=== PATIENT | female | born 1970 | race Caucasian/White ===

== ENCOUNTER 2019-10-25 20:56 | Emergency (ER) | payer MEDICAID, SELFPAY ==
[2019-10-25 21:28] VITALS: BP 182/116; PULSE 124; RESP 20; TEMP 36.3; O2SAT 95; BMI 32.3
== END 2019-10-25 22:30 | disposition left against medical advice (07) ==
LOC: ER 21:54
PROVIDERS: Emergency Provider Emergency Medicine
DX: Z53.21 Procedure and treatment not carried out due to patient leaving prior to being seen by health care provider (principal)
CPT/HCPCS: 99281

== ENCOUNTER 2020-02-14 14:59 | Emergency (ER) | payer MEDICAID, SELFPAY ==
[2020-02-14 15:03] VITALS: BP 197/116; PULSE 85; RESP 18; TEMP 36.8; O2SAT 98; BMI 36.6
--- NOTE | 2020-02-14 15:20 | ECG_ITS ---
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 Measurements Intervals [place] Rate: 89 P: 14 ID: [id number] QRS: 27 QRSD: 82 T: 71 QT: 353 QTc: 431 Interpretive Statements SINUS RHYTHM NONSPECIFIC T-WAVE ABNORMALITY Compared to ECG 03/06/2019 15:36:27 T-wave abnormality now present Sinus tachycardia no longer present Electronically Signed On 02-15-2020 8:37:53 CDT by Kimberly Biggs M.D. [id number] f
--- NOTE | 2020-02-14 15:20 | XRR_ITS ---
PROCEDURE INFORMATION: Exam: XR Right Knee Exam date and time: 02/14/2020 3:21 PM Age: 50 years old Clinical indication: Pain; Knee; Right; Prior surgery; Surgery date: 6+ months; Surgery type: Benign tumor removal TECHNIQUE: Imaging protocol: XR Right knee. Views: 3 views. COMPARISON: No relevant prior studies available. FINDINGS: Bones/joints: Negative for acute bony abnormality Soft tissues: There is a small suprapatellar bursa effusion seen. XR/XR knee RT 3V* [id number] IMPRESSION: 1. No acute bone abnormality. 2. Small suprapatellar bursa effusion
--- NOTE | 2020-02-14 15:28 | ED_ITS ---
HPI - General Adult General: Chief complaint: General Medical Stated complaint: RIGHT KNEE PAIN/HEART PALPS Time Seen by Provider: 02/14/20 15:20 Source: patient Mode of arrival: ambulatory Limitations: no limitations History of Present Illness: HPI narrative: 50-year-old female states she has chronic right knee pain has had multiple surgeries. She states that she has had increased pain over the last 1 to 2 weeks especially with walking. She denies any new injuries. States pain is improved with rest. States she is also had palpitations and has been very anxious. She states she supposed take medicine for this but has not over the last month due to not being able to afford it. She denies any chest pain at this time. Denies any vomiting. Associated symptoms: Reports palpitations; Deny dyspnea, headache(s), nausea, rash or vomiting Review of Systems Const: Denies: fever(s), chills, body aches or change in appetite Eyes: Denies: blurry vision or eye discomfort ENMT: Denies: throat pain or dental pain Card: Reports: palpitations Resp: Denies: dyspnea GI: Denies: abdominal pain, nausea, vomiting or diarrhea : Denies: dysuria Musc: Reports: extremity pain Skin/Breast: Denies: rash Neuro: Denies: headache(s) Psych: Denies: depression Ton/Lymph: Denies: easy bruising All/Imm: Denies: urticaria PFSH ED PFSH: Social History Smoking and tobacco status: never smoked Physical Exam Const: COMMON NORMALS: no acute distress, patient oriented x3 and healthy appearing HENMT: COMMON NORMALS: normocephalic and atraumatic HEAD & SCALP: normocephalic and atraumatic Eye: COMMON NORMALS: Equal, round and reactive pupils present and EOMs intact bilaterally PUPIL: Yes Equal, round and reactive pupils present Neck/C-Spine: COMMON NORMALS: full ROM and supple Chest: COMMONS NORMALS: normal inspection of the chest and normal palpation of entire chest wall Resp: COMMON NORMALS: normal respiratory effort, No retractions, No use of accessory muscles and clear to auscultation bilaterally AUSCULTATION: clear to auscultation bilaterally Cardio: COMMON NORMALS: regular rate, regular rhythm and No murmurs present (Cardio) RATE: regular rate RHYTHM: regular rhythm GI: COMMON NORMALS: Normal to inspection, nondistended, normoactive bowel sounds present, Soft to palpation, non-tender and no masses PALPATION: Yes Soft to palpation Extremity: COMMON NORMALS: normal to inspection and full ROM Neuro: COMMON NORMALS: patient oriented x3, moves all extremities and no focal motor deficits Psych: COMMON NORMALS: mental status grossly normal, Normal thought process present and cooperative MOOD & AFFECT: Yes anxious THOUGHT PROCESS: Normal thought process present Skin: COMMON NORMALS: no rashes or lesions noted and no wounds GENERAL SKIN EXAM: no rashes or lesions noted Course Vital Signs: Vital signs: Vital Signs Temperature 98.2 F 02/14/20 15:03 Pulse Rate 85 02/14/20 15:03 Respiratory Rate 18 02/14/20 15:03 Blood Pressure 197/116 02/14/20 15:03 Pulse Oximetry 98 02/14/20 15:03 MDM - General Adult MDM Narrative: Medical decision making narrative: Patient presents here with knee pain that is chronic in nature. Patient is also hypertensive. She is quite anxious as well. She feels much improved here after Ativan. We will start her on metoprolol. She is to follow-up with her primary care doctor soon as possible and return if worsening. Imaging Data^: xr knee: Radiologist's impression: [place] [address] XRay Report Signed Patient: Kanchan Leyva Unit #: [id number] : 1970 Age/Sex: 50 / F ADM Date: 02/14/20 Loc: ER Room/Bed: Attending Dr: Ordering Provider/Ordering MD: Lucy Goel MD Date of Service: 02/14/20 Procedure(s): XR knee RT 3V* [id number] Accession Number(s): [id number] Report Number: [id number] PROCEDURE INFORMATION: Exam: XR Right Knee Exam date and time: 02/14/2020 3:21 PM Age: 50 years old Clinical indication: Pain; Knee; Right; Prior surgery; Surgery date: 6+ months; Surgery type: Benign tumor removal TECHNIQUE: Imaging protocol: XR Right knee. Views: 3 views. COMPARISON: No relevant prior studies available. FINDINGS: Bones/joints: Negative for acute bony abnormality Soft tissues: There is a small suprapatellar bursa effusion seen. XR/XR knee RT 3V* [id number] IMPRESSION: 1. No acute bone abnormality. 2. Small suprapatellar bursa effusion EKG Data^: EKG 1: Attestation: I personally reviewed and interpreted this EKG as follows: EKG interpretation date: 02/14/20 EKG interpretation time: 15:14 Interpretation: Normal sinus rhythm heart rate [address] or T wave abnormalities QRS 82 QTC 400 Computer generated interpretation: Knee X-Ray 02/14/20 15:20 IMPRESSION: 1. No acute bone abnormality. 2. Small suprapatellar bursa effusion Discharge Plan Discharge Patient Disposition: Home Clinical Impression: Knee pain, right Qualifiers: Chronicity: chronic Qualified Code(s): M25.561 - Pain in right knee Hypertension Qualifiers: Hypertension type: essential hypertension Qualified Code(s): I10 - Essential (primary) hypertension Condition: Stable Prescriptions: New metoprolol tartrate 50 mg tablet 50 mg PO BID Qty: 30 RF: 0 Naprosyn 500 mg tablet 500 mg PO BID PRN (Reason: pain) Qty: 20 RF: 0 Discharge Orders: Discharge Order (Routine); Ordered 02/14/20 Ordered By: Lucy Goel Referrals: Juliano Rivers NP [Primary Care Provider] - 1-3 days Discharge Diet: Advance as tolerated Discharge Activity: Resume usual activity Patient Instructions: Knee Pain (ED), Hypertension (ED) Coding Level of Care Code ED Hotel Administrative Assistant for Chg Fwd Exam Comprehensive
[2020-02-14] MEDS: HYDROcodone-acetaminophen 5-325 mg Tablet 1 TAB PO (15:35)
[2020-02-14] MEDS: LORazepam 1 mg Tablet PO (15:35)
[2020-02-14] MEDS: metoprolol tartrate 25 mg Tablet PO (16:20)
[2020-02-14 16:22] VITALS: PULSE 86; RESP 14; O2SAT 93
== END 2020-02-14 16:23 | disposition home or self-care (01) ==
PROVIDERS: Emergency Provider Emergency Medicine; PCP Nurse Practitioner Family
DX: M25.561 Pain in right knee (principal); I10 Essential (primary) hypertension
CPT/HCPCS: 12345; 73562; 93005; 99281; 99283

== ENCOUNTER 2020-12-14 15:52 | Outpatient (CLI) | payer BC, MEDICAID, SELFPAY ==
--- NOTE | 2020-12-14 15:57 | XR_ITS ---
WS: [id number] KNEE RIGHT TECHNIQUE: 2 views of the right knee CLINICAL INFORMATION: KNEE PAIN, BILATERAL COMPARISON: February 14, 2020 FINDINGS: Moderate to advanced narrowing medial joint compartments similar in appearance to February 14, 2020. Mi ld hypertrophic spurring along the joint line. Moderate degenerative narrowing of patellofemoral nathalia culation. Slightly hypertrophic patella. Mild soft tissue edema. XR/XR knee RT 1-2V 01063 IMPRESSION: 1. Moderate to advanced narrowing medial joint compartment unchanged since Feb us2019. 2. Moderate Degenerative narrowing patellofemoral articulation. Kellgren-Slade Classification: grade 3 (moderate): moderate multiple osteoph ytes, definite narrowing of joint space and some sclerosis and possible deformi ty of bone ends
--- NOTE | 2020-12-14 15:57 | XR_ITS ---
WS: [id number] KNEE LEFT TECHNIQUE: 2 views of the left knee CLINICAL INFORMATION: KNEE PAIN, BILATERAL COMPARISON: None. FINDINGS: Moderate degenerative narrowing medial joint compartment. Mild degenerative narrowing patellofemoral articulation. Small suprapatellar effusion. Soft tissue edema. No acute fractures. IMPRESSION: 1. Moderate degenerative narrowing medial joint compartment. Mild degenerative narrowing patellofemo ral articulation. 2. Small suprapatellar effusion. Kellgren-Slade Classification:
== END 2020-12-14 15:53 | disposition home or self-care (01) ==
PROVIDERS: PCP Nurse Practitioner Family; Visit Provider Nurse Practitioner Family
DX: M25.561 Pain in right knee (principal); M25.562 Pain in left knee; M25.462 Effusion, left knee
CPT/HCPCS: 73560

== ENCOUNTER → 2020-12-27 13:30 | Outpatient (BNVA) | payer BC, SELFPAY | PROVIDERS: PCP Nurse Practitioner Family; Referring Provider Nurse Practitioner Family; Visit Provider Orthopaedic Surgery | DX: M25.561 Pain in right knee (principal); G89.29 Other chronic pain; M17.0 Bilateral primary osteoarthritis of knee | CPT/HCPCS: 73560; 73565 ==